=== PATIENT | female | born 1965 | race Caucasian/White ===

== ENCOUNTER 2023-07-17 10:33 | Outpatient (CLI) | payer MEDICARE, MEDICAID | END 2023-07-17 10:34 | disposition home or self-care (01) | LOC: DTY/OP 10:33 | PROVIDERS: ATTEND Surgery | DX: Z71.3 Dietary counseling and surveillance (principal); E66.01 Morbid (severe) obesity due to excess calories | CPT/HCPCS: 97802 ==

== ENCOUNTER 2023-10-04 09:30 | Inpatient (IN) | payer MEDICARE, MEDICAID ==
[2023-10-09] MEDS ORDERED: Sodium Chloride 0.9% 100 ML ONE (06:23)
[2023-10-09] MEDS ORDERED: CEFAZOLIN 2 GM VIAL ONE (06:23)
[2023-10-09] MEDS ORDERED: EPINEPHrine 1 MG/ML VIAL ONE (06:48)
[2023-10-09] MEDS ORDERED: Bupivacaine 0.25% HCL 30 ML VIAL ONE (06:48)
[2023-10-09] MEDS ORDERED: Lidocaine 1% PF 5 ML VIAL ONE (06:58)
[2023-10-09] MEDS ORDERED: Rocuronium Bromide 10 MG/ML (10ML VIAL) ONE (06:58)
[2023-10-09] MEDS ORDERED: fentaNYL PF 100 MCG/2 ML SYRINGE ONE ×2 (06:58→09:16)
[2023-10-09] MEDS ORDERED: PROPOFOL 20 ML ONE (06:58)
[2023-10-09] MEDS ORDERED: Heparin 5,000 UNITS/ML VIAL ONE (07:23)
[2023-10-09] MEDS ORDERED: Midazolam HCl 2 mg/2 ml Vial ONE (07:23)
[2023-10-09] MEDS ORDERED: Hydrocortisone Sod Succ/PF 100 mg/2 ml Vial ONE (08:10)
[2023-10-09] MEDS ORDERED: diphenhydrAMINE 50 MG/ML VIAL ONE (08:10)
[2023-10-09] MEDS ORDERED: diphenhydrAMINE 25 MG CAP PO PRN (08:21)
[2023-10-09] MEDS ORDERED: Naloxone HCl 0.4 mg/ml Vial IV PRN (08:21)
[2023-10-09] MEDS ORDERED: Ondansetron PF 4 MG/2 ML Vial IVP PRN ×2 (08:21→09:05)
[2023-10-09] MEDS ORDERED: diphenhydrAMINE 50 MG/ML VIAL IVP PRN ×2 (08:21→09:05)
[2023-10-09] MEDS ORDERED: FENTANYL 500 MCG/10 ML VIAL 2,000 MCG in Sodium Chloride 0.9% 60 ML IV PRN (08:21)
[2023-10-09] MEDS ORDERED: diphenhydrAMINE 50 MG/ML VIAL IM PRN (08:21)
[2023-10-09] MEDS ORDERED: Ondansetron HCl/PF 4 MG/2 ML Vial IVP PRN (08:21)
[2023-10-09] MEDS ORDERED: Promethazine HCl 25 MG/ML VIAL IM PRN ×3 (08:21→09:05)
[2023-10-09] MEDS ORDERED: PHENYLEPHRINE-NS 100 MCG/ML 10 ML SYRINGE ONE (08:30)
[2023-10-09] MEDS ORDERED: Communication Order-Pharmacy FS PRN (08:30)
[2023-10-09] MEDS ORDERED: Ketorolac Tromethamine 30 MG (1 mL) VIAL ONE (08:52)
[2023-10-09] MEDS ORDERED: Ondansetron PF 4 MG/2 ML Vial ONE (08:52)
[2023-10-09] MEDS ORDERED: SUGAMMADEX SODIUM 200 MG/2 ML VIAL ONE (08:54)
[2023-10-09] MEDS ORDERED: Dextrose 5% in Water 1,000 ML IV PRN (09:05)
[2023-10-09] MEDS ORDERED: Dextrose 50% Abboject 50 ML SYRINGE SLOW IVP PRN (09:05)
[2023-10-09] MEDS ORDERED: Hydrocodone-Acetamin 15 ML UDCUP PO PRN (09:05)
[2023-10-09] MEDS ORDERED: ALPRAZolam 1 MG TAB PO PRN ×2 (09:05→09:25)
[2023-10-09] MEDS ORDERED: hydrALAZINE 20 MG/ML VIAL SLOW IVP PRN (09:05)
[2023-10-09] MEDS ORDERED: Ipratropium/Albuterol 3 ML NEB NEB PRN (09:05)
[2023-10-09] MEDS ORDERED: Promethazine HCl 25 MG/ML VIAL ONE (09:26)
[2023-10-09] MEDS ORDERED: Haloperidol Lactate 5 MG/ML VIAL ONE (09:42)
[2023-10-09 10:00] VITALS: BMI 40.4
[2023-10-09] MEDS ORDERED: Labetalol HCl 100 MG/20 ML VIAL ONE (10:22)
[2023-10-09] MEDS: Pantoprazole 40 MG VIAL IVP SCH (12:37)
[2023-10-09] MEDS: Losartan 25 MG TAB PO SCH (12:37)
[2023-10-09] MEDS: D5 1/2 NS w/20 mEq KCL 1,000 ML IV SCH (13:32)
[2023-10-09] MEDS: Icosapent Ethyl 1 GM CAPSULE PO SCH (17:14)
[2023-10-09] MEDS: Mirtazapine 15 MG TAB PO SCH (20:28)
[2023-10-10 05:30] LABS: #Basophils 0.05 10x3/uL (0.0-0.2); #Eosinphils Less than 0.03 10x3/uL (0.0-0.7); %Basophils 0.4 % (0.0-1.0); %Eosinophils 0.1 % (0.0-10.0); %Lymphocytes 28.5 % (21.0-51.0); %Neutrophils 63.7 % (42.0-75.0); Hematocrit 35.9 % (36.0-47.0); Hemoglobin 11.9 g/dL (12.0-16.0); Mean Corpuscular HGB CONC 33.1 g/dL (32.0-36.0); Mean Corpuscular Hemoglobin 30.3 pg (27.0-31.0); Mean Corpuscular Volume 91.3 fL (78.0-98.0); Platelet Count 258 10x3/uL (130-400); RBC Distribution Width 13.1 % (11.5-14.5); Red Blood Cell (RBC) Count 3.93 mill/uL (4.20-5.40)
[2023-10-10 05:49] LABS: Anion Gap 14 mmol/L (10-20); BUN (Urea Nitrogen) 9 mg/dL (9.8-20.1); Calc. Creatinine Clearance 157 mL/min (70-130); Calcium 8.3 mg/dL (7.8-10.44); Carbon Dioxide 19 mmol/L (22-29); Chloride 109 mmol/L (98-107); Estimated GFR 95; Glucose 128 mg/dL (70-105); Potassium 3.9 mmol/L (3.5-5.1); Sodium 138 mmol/L (136-145)
[2023-10-10] MEDS: Levothyroxine Sodium 75 MCG TAB PO SCH (06:25)
[2023-10-10] MEDS: Hydrocodone-Acetamin 15 ML UDCUP PO PRN (06:26)
[2023-10-10 08:31] VITALS: BP 120/65; TEMP 98.3
[2023-10-10] MEDS: Losartan 25 MG TAB PO SCH (08:40)
[2023-10-10] MEDS: Pantoprazole 40 MG VIAL IVP SCH (08:40)
[2023-10-10] MEDS: Enoxaparin 40 MG (0.4 mL) SYRINGE SC SCH (08:40)
[2023-10-10] MEDS ORDERED: TOPIRAMATE 25 MG PO SCH (09:00)
== END 2023-10-10 13:42 | disposition home or self-care (01) | DRG 621 ==
LOC: SURG A 10-09 05:53
PROVIDERS: ADMIT Surgery; ATTEND Surgery
PROC: 0DB64Z3 Excision of Stomach, Percutaneous Endoscopic Approach, Vertical (ICD-10-PCS; principal; 2023-10-09)
PROC: 8E0W4CZ Robotic Assisted Procedure of Trunk Region, Percutaneous Endoscopic Approach (ICD-10-PCS; 2023-10-09)
DX: E66.01 Morbid (severe) obesity due to excess calories (principal); Z68.41 Body mass index [BMI] 40.0-44.9, adult; I10 Essential (primary) hypertension; K75.81 Nonalcoholic steatohepatitis (NASH); F41.9 Anxiety disorder, unspecified; M19.90 Unspecified osteoarthritis, unspecified site; F32.A Depression, unspecified; E07.9 Disorder of thyroid, unspecified; M81.0 Age-related osteoporosis without current pathological fracture; Z96.649 Presence of unspecified artificial hip joint; Z79.899 Other long term (current) drug therapy; Z98.890 Other specified postprocedural states; Z88.1 Allergy status to other antibiotic agents; Z88.8 Allergy status to other drugs, medicaments and biological substances
CPT/HCPCS: 36415; 80048; 85025; 88307; C9113; J0171; J0665; J1200; J1630; J1644; J1650; J1720; J1885; J2250; J2405; J2550; J2704; J3480; J3490